=== PATIENT | female | born 1985 | race Caucasian/White ===

== ENCOUNTER 2018-11-21 23:42 | Emergency (ER) | payer OTHER ==
--- NOTE | 2018-11-22 00:05 | ER ---
Nurse's Notes [facility] Name: Zeny Bowen Age: 33 yrs Sex: Female : 1985 Arrival Date: 11/21/2018 Time: 23:43 Bed DIS1 Private MD: Diagnosis: Cellulitis of right lower limb Presentation: 11/21 23:48 Presenting complaint: Patient states: I started having right knee pain yesterday and la1 today I started having redness and increased pain. Transition of care: patient was not received from another setting of care. Onset of symptoms was November 21, 2018. Risk Assessment: Do you want to hurt yourself or someone else? Patient reports no desire to harm self or others. Initial Sepsis Screen: Does the patient meet any 2 criteria? No. Patient's initial sepsis screen is negative. Does the patient have a suspected source of infection? No. Patient's initial sepsis screen is negative. Care prior to arrival: None. 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 - Social history:: Smoking status: Patient/guardian denies using tobacco. - Ebola Screening: : No symptoms or risks identified at this time. Screenin/29 00:43 Abuse screen: Denies threats or abuse. Denies injuries from another. Nutritional mg2 screening: No deficits noted. Tuberculosis screening: No symptoms or risk factors identified. Fall Risk None identified. Assessment: 00:41 General: Appears in no apparent distress. comfortable, Behavior is calm, cooperative. mg2 Pain: Complains of pain in right leg and right knee Pain does not radiate. Pain currently is 1 out of 10 on a pain scale. Quality of pain is described as aching, Pain began gradually, 2-3 days ago. Is intermittent. Neuro: Level of Consciousness is awake, alert, obeys commands, Oriented to person, place, time, situation. Cardiovascular: Capillary refill < 3 seconds Patient's skin is warm and dry. Respiratory: Airway is patent Respiratory effort is even, unlabored, Respiratory pattern is regular, symmetrical. GI: No signs and/or symptoms were reported involving the gastrointestinal system. : No signs and/or symptoms were reported regarding the genitourinary system. EENT: No signs and/or symptoms were reported regarding the EENT system. Derm: Skin is intact, is healthy with good turgor, Skin is pink, warm \T\ dry. normal, redness and mild swelling/cellulitis in the right knee. Musculoskeletal: Circulation, motion, and sensation intact. Capillary refill < 3 seconds, Swelling present in right knee. Vital Signs: 11/21 23:49 BP 119 / 85; Pulse 85; Resp 18; Temp 98.7; Pulse Ox 98% on R/A; Weight 68.04 kg; Height la1 5 ft. 6 in. (167.64 cm); Pain 4/10; 11/22 00:43 BP 120 / 78; Pulse 80; Resp 18; Pulse Ox 100% on R/A; Pain 1/10; mg2 11/21 23:49 Body Mass Index 24.21 (68.04 kg, 167.64 cm) la1 ED Course: 11/21 23:43 Patient arrived in ED. am2 23:48 Triage completed. la1 23:49 Arm band placed on right wrist. la1 23:50 Teofilo Ghosh NP is PHCP. pm1 23:50 Mitesh Juarez MD is Attending Physician. pm1 11/22 00:28 Urban Wall, RN is Primary Nurse. mg2 00:43 No provider procedures requiring assistance completed. Patient did not have IV access mg2 during this emergency room visit. 00:44 Patient has correct armband on for positive identification. 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 Exp: mg2 09/09/2020. Lot #: [id number]. } Route: IM; Site: right deltoid; 00:29 Follow up: Response: No adverse reaction; Medication administered at discharge. mg2 00:29 Drug: Bactrim (160 mg-800 mg (DS) 1 tablet Route: PO; mg2 00:29 Follow up: Response: No adverse reaction; Medication administered at discharge. mg2 Outcome: 00:04 Discharge ordered by . pm1 00:43 Discharged to home ambulatory, with family. mg2 00:43 Condition: stable 00:43 Discharge instructions given to patient, family, Instructed on discharge instructions, follow up and referral plans. medication usage, Demonstrated understanding of instructions, follow-up care, medications, Prescriptions given X 2. 00:44 Patient left the ED. mg2 Signatures: Abilio Bajwa RN RN la1 Teofilo Ghosh NP PRESCHOOL ADVISER pm1 Hui Springer am2 Urban Wall RN RN mg2
--- NOTE | 2018-11-22 00:06 | EDPHYS ---
Physician Documentation [facility] Name: Zeny Bowen Age: 33 yrs Sex: Female : 1985 Arrival Date: 11/21/2018 Time: 23:43 Bed DIS1 Private MD: ED Physician Mitesh Juarez HPI: 11/22 00:00 This 33 yrs old Female presents to ER via Ambulatory with complaints of Knee pm1 Pain - redness and swelling. 00:00 the patient presents with a swollen area of the right knee. Description: raised. Onset: pm1 The symptoms/episode began/occurred today. Possible cause(s): insect sting. Associated signs and symptoms: Pertinent negatives: discharge, drainage, fever. Modifying factors: the symptoms are alleviated by nothing, the symptoms are aggravated by touching. Severity of symptoms: in the emergency department the symptoms are actually worse. The patient has experienced a previous episode, many years ago, MRSA. The patient has not recently seen a physician. Patient was shaving and noticed a painful area to right knee that started swelling a few hours later. 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 - Social history:: Smoking status: Patient/guardian denies using tobacco. - Ebola Screening: : No symptoms or risks identified at this time. ROS: 11/22 00:00 Constitutional: Negative for fever, chills, and weight loss, Eyes: Negative for injury, pm1 pain, redness, and discharge, ENT: Negative for injury, pain, and discharge, Neck: Negative for injury, pain, and swelling, Cardiovascular: Negative for chest pain, palpitations, and edema, Respiratory: Negative for shortness of breath, cough, wheezing, and pleuritic chest pain, Abdomen/GI: Negative for abdominal pain, nausea, vomiting, diarrhea, and constipation, Back: Negative for injury and pain, : Negative for injury, bleeding, discharge, and swelling, MS/Extremity: Negative for injury and deformity. Neuro: Negative for headache, weakness, numbness, tingling, and seizure. Skin: Positive for of the right knee, insect bite. Exam: 00:00 Constitutional: This is a well developed, well nourished patient who is awake, alert, pm1 and in no acute distress. Head/Face: Normocephalic, atraumatic. Neck: Trachea midline, no thyromegaly or masses palpated, and no cervical lymphadenopathy. Supple, full range of motion without nuchal rigidity, or vertebral point tenderness. No Meningismus. Chest/axilla: Normal chest wall appearance and motion. Nontender with no deformity. No lesions are appreciated. Cardiovascular: Regular rate and rhythm with a normal S1 and S2. No gallops, murmurs, or rubs. Normal PMI, no JVD. No pulse deficits. Respiratory: Lungs have equal breath sounds bilaterally, clear to auscultation and percussion. No rales, rhonchi or wheezes noted. No increased work of breathing, no retractions or nasal flaring. Abdomen/GI: Soft, non-tender, with normal bowel sounds. No distension or tympany. No guarding or rebound. No evidence of tenderness throughout. Back: No spinal tenderness. No costovertebral tenderness. Full range of motion. 00:00 MS/ Extremity: Pulses equal, no cyanosis. Neurovascular intact. Full, normal range of motion. 00:00 Skin: Appearance: normal except for affected area, abscess, not appreciated, cellulitis, that is mild, on the right knee - lower portion of patella. 00:00 Neuro: Orientation: is normal, Motor: is normal, moves all fours. Vital Signs: 11/21 23:49 BP 119 / 85; Pulse 85; Resp 18; Temp 98.7; Pulse Ox 98% on R/A; Weight 68.04 kg; Height la1 5 ft. 6 in. (167.64 cm); Pain 4/10; 11/22 00:43 BP 120 / 78; Pulse 80; Resp 18; Pulse Ox 100% on R/A; Pain 1/10; mg2 11/21 23:49 Body Mass Index 24.21 (68.04 kg, 167.64 cm) la1 MDM: 11/21 23:51 Patient medically screened. [facility] 11/22 00:04 Data reviewed: vital signs. Data interpreted: Pulse oximetry: on room air is 98 %. pm1 Interpretation: normal. Counseling: I had a detailed discussion with the patient and/or guardian regarding: the historical points, exam findings, and any diagnostic results supporting the discharge/admit diagnosis, the need for outpatient follow up, to return to the emergency department if symptoms worsen or persist or if there are any questions or concerns that arise at home. 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 Exp: mg2 09/09/2020. Lot #: [id number]. } Route: IM; Site: right deltoid; 00:29 Follow up: Response: No adverse reaction; Medication administered at discharge. mg2 00:29 Drug: Bactrim (160 mg-800 mg (DS) 1 tablet Route: PO; mg2 00:29 Follow up: Response: No adverse reaction; Medication administered at discharge. mg2 Disposition: 11/22/18 00:04 Discharged to Home. Impression: Cellulitis of right lower limb. - Condition is Stable. - Discharge Instructions: Insect Bite, Cellulitis, Adult. - Prescriptions for Bactrim DS 800- 160 mg Oral Tablet - take 1 tablet by ORAL route every 12 hours for 10 days; 20 tablet. Bactroban 2 % Topical Ointment - Apply to affected area 1 application by TOPICAL route every 12 hours; 30 gram. - Medication Reconciliation Form, Thank You Letter, Antibiotic Education, Prescription Opioid Use form. - Follow up: Emergency Department; When: As needed; Reason: Worsening of condition. Follow up: Private Physician; When: 2 - 3 days; Reason: Recheck today's complaints, Continuance of care, Re-evaluation by your physician. - Problem is new. - Symptoms have improved. Addendum: 11/23/2018 11:19 Co-signature as Attending Physician, Mitesh Juarez MD I agree with the assessment and c cabrera plan of care. Signatures: Mtiesh Juarez MD MD cha Attema, Lee RN RN la1 Teofilo Ghosh NP SHOE CLERK pm1 Ubran Wall RN RN mg2 Corrections: (The following items were deleted from the chart) 11/22 00:44 00:04 11/22/2018 00:04 Discharged to Home. Impression: Cellulitis of right lower limb. mg2 Condition is Stable. Forms are Medication Reconciliation Form, Thank You Letter, Antibiotic Education, Prescription Opioid Use. Follow up: Emergency Department; When: As needed; Reason: Worsening of condition. Follow up: Private Physician; When: 2 - 3 days; Reason: Recheck today's complaints, Continuance of care, Re-evaluation by your physician. Problem is new. Symptoms have improved. pm1
[2018-11-22] MEDS ORDERED: SMZ./TMP. 800/160 MG TABLET ONE (00:31)
[2018-11-22] MEDS ORDERED: TETANUS & DIPHTHERIA TOX,ADULT 0.5 ML VIAL ONE (00:31)
== END 2018-11-22 00:44 | disposition home or self-care (01) ==
LOC: ER 23:42
DX: L03.115 Cellulitis of right lower limb (principal); Z23 Encounter for immunization
CPT/HCPCS: 90714

== ENCOUNTER 2021-09-16 22:13 | Emergency (ER) | payer OTHER ==
--- NOTE | 2021-09-16 23:59 | EDPHYS ---
Physician Documentation [facility] Name: Zeny Bowen Age: 36 yrs Sex: Female : 1985 Arrival Date: 09/16/2021 Time: 22:19 Bed 8 Private MD: ED Physician Macho Napier HPI: 09/17 00:57 This 36 yrs old Female presents to ER via Ambulatory with complaints of Wrist Injury - kdr Right. 00:57 The patient or guardian reports decreased range of motion, pain. The complaints affect kdr the right wrist diffusely. Context: The problem was sustained at home, resulted from a direct blow, Patient hit a wall with her hand. Onset: The symptoms/episode began/occurred suddenly, just prior to arrival, at 19:00. Modifying factors: The symptoms are alleviated by nothing, the symptoms are aggravated by movement. Associated signs and symptoms: Pertinent positives: None. The patient has not experienced similar symptoms in the past. The patient has not recently seen a physician. 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 - Social history:: Smoking status: Patient denies any tobacco usage or history of. Patient/guardian denies using alcohol. ROS: 09/17 00:57 Constitutional: Negative for fever, chills, and weight loss, Eyes: Negative for injury, kdr pain, redness, and discharge. MS/extremity: Positive for injury or acute deformity, decreased range of motion, pain, tenderness, of the right wrist. Exam: 00:57 Constitutional: This is a well developed, well nourished patient who is awake, alert, kdr and in no acute distress. Head/Face: Normocephalic, atraumatic. 00:57 Musculoskeletal/extremity: Extremities: grossly normal except: noted in the right wrist: decreased ROM, pain, tenderness. Vital Signs: 09/16 22:32 BP 155 / 88; Pulse 102; Resp 18 S; Temp 99.0(TE); Pulse Ox 100% on R/A; Weight 77.11 kg lg3 (R); Height 5 ft. 6 in. (167.64 cm) (R); Pain 4/10; 09/17 00:17 BP 138 / 85; Pulse 87; Resp 17; Pulse Ox 100% on R/A; sm5 09/16 22:32 Body Mass Index 27.44 (77.11 kg, 167.64 cm) lg3 Procedures: 00:57 Splinting: using wrist splint. kdr MDM: 09/16 23:59 Patient medically screened. kdr 09/17 01:00 Data reviewed: vital signs, nurses notes, radiologic studies. Counseling: I had a kdr detailed discussion with the patient and/or guardian regarding: the historical points, exam findings, and any diagnostic results supporting the discharge/admit diagnosis, radiology results, the need for outpatient follow up. 09/16 22:50 Order name: Wrist Right 3 View XRAY kdr Administered Medications: No medications were administered Disposition Summary: 09/16/21 23:59 Discharge Ordered Location: Home kdr Problem: new kdr Symptoms: have improved kdr Condition: Stable kdr Diagnosis - Sprain of carpal joint of right wrist kdr - Contusion of right wrist kdr Followup: kdr - With: Private Physician - When: 2 - 3 days - Reason: If symptoms return, Further diagnostic work-up, Recheck today's complaints, Continuance of care, Re-evaluation by your physician Discharge Instructions: - Discharge Summary Sheet kdr - Wrist Pain, Adult, [id number] kdr Forms: - Medication Reconciliation Form kdr - Thank You Letter kdr Signatures: Dispatcher [employer] Macho De La Fuente MD MD kdr Dacia Lambert, RN RN lg3
--- NOTE | 2021-09-16 23:59 | ER ---
Nurse's Notes [facility] Name: Zeny Bowen Age: 36 yrs Sex: Female : 1985 Arrival Date: 09/16/2021 Time: 22:19 Bed 8 Private MD: Diagnosis: Sprain of carpal joint of right wrist;Contusion of right wrist Presentation: 09/16 22:32 Chief complaint: Patient states: hit right hand/wrist on wall around 1900. pain lg3 increasingly getting worse. no swelling or discoloration noted. Coronavirus screen: Client denies travel out of the [place] in the last 14 days. At this time, the client does not indicate any symptoms associated with coronavirus-19. Ebola Screen: No symptoms or risks identified at this time. Initial Sepsis Screen: Does the patient meet any 2 criteria? No. Patient's initial sepsis screen is negative. Does the patient have a suspected source of infection? No. Patient's initial sepsis screen is negative. Risk Assessment: Do you want to hurt yourself or someone else? Patient reports no desire to harm self or others. Onset of symptoms was September 16, 2021. 22:32 Method Of Arrival: Ambulatory lg3 22:32 Acuity: HADLEY 3 lg3 Triage Assessment: 22:35 General: Appears in no apparent distress. comfortable, Behavior is calm, cooperative. lg3 Pain: Complains of pain in right hand and right wrist Pain currently is 4 out of 10 on a pain scale. Quality of pain is described as sharp, shooting, Aggravated by increased activity, weight bearing. EENT: No deficits noted. Neuro: No deficits noted. Level of Consciousness is awake, alert, obeys commands, Oriented to person, place, time, situation. Cardiovascular: No deficits noted. Capillary refill < 3 seconds Clubbing of nail beds is absent Patient's skin is warm and dry. Respiratory: No deficits noted. Airway is patent Trachea midline Respiratory effort is even, unlabored, Respiratory pattern is regular, symmetrical. GI: No deficits noted. No signs and/or symptoms were reported involving the gastrointestinal system. : No deficits noted. No signs and/or symptoms were reported regarding the genitourinary system. Derm: No deficits noted. Skin is intact, is healthy with good turgor, Skin is dry. Musculoskeletal: Range of motion: limited in right wrist. Injury Description: hit to wall. 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 - Social history:: Smoking status: Patient denies any tobacco usage or history of. Patient/guardian denies using alcohol. Screenin:40 Abuse screen: Denies threats or abuse. Denies injuries from another. Nutritional lg3 screening: No deficits noted. Tuberculosis screening: No symptoms or risk factors identified. Fall Risk None identified. Assessment: 09/17 00:17 Musculoskeletal: Reports pain in right arm and right hand and right wrist. sm5 Vital Signs: 09/16 22:32 BP 155 / 88; Pulse 102; Resp 18 S; Temp 99.0(TE); Pulse Ox 100% on R/A; Weight 77.11 kg lg3 (R); Height 5 ft. 6 in. (167.64 cm) (R); Pain 4/10; 09/17 00:17 BP 138 / 85; Pulse 87; Resp 17; Pulse Ox 100% on R/A; sm5 09/16 22:32 Body Mass Index 27.44 (77.11 kg, 167.64 cm) lg3 ED Course: 09/16 22:19 Patient arrived in ED. wm 22:35 Triage completed. lg3 22:35 Arm band placed on left wrist. lg3 22:49 Macho Napier MD is Attending Physician. kdr 23:32 Wrist Right 3 View XRAY In Process Unspecified. EDMS 09/17 00:17 No provider procedures requiring assistance completed. Patient did not have IV access sm5 during this emergency room visit. wrist splint applied. 00:18 Patient has correct armband on for positive identification. Bed in low position. Call sm5 light in reach. Side rails up X2. Administered Medications: No medications were administered Outcome: 09/16 23:59 Discharge ordered by . kdr 09/17 00:18 Discharged to home ambulatory, with significant other. sm5 Condition: good Discharge instructions given to patient, significant other, Instructed on discharge instructions, follow up and referral plans. Demonstrated understanding of instructions, follow-up care. 00:18 Patient left the ED. sm5 Signatures: Dispatcher [employer] EDMS Macho Napier MD MD kdr Gibson, Lacie, CARA RN frank3 Ana Crum Sarah RN RN sm5
[2021-09-17 01:47] VITALS: TEMP 99; O2SAT 100
[2021-09-17 01:49] VITALS: BP 138/85
--- NOTE | 2021-09-17 08:37 | RAD REPORT ---
EXAM DESCRIPTION: RAD - Wrist Right 3 View - 09/16/2021 11:32 pm CLINICAL HISTORY: PAIN Pain COMPARISON: No comparisons FINDINGS: No fracture or dislocation seen. No foreign body or other soft tissue abnormality. IMPRESSION: Negative examination.
== END 2021-09-17 00:18 | disposition home or self-care (01) ==
LOC: ER 22:13
DX: S63.511A Sprain of carpal joint of right wrist, initial encounter (principal); W22.8XXA Striking against or struck by other objects, initial encounter
CPT/HCPCS: 99283

== ENCOUNTER 2024-07-01 14:41 | Emergency (ER) | payer OTHER, SELFPAY ==
--- NOTE | 2024-07-01 15:03 | EDPHYS ---
Physician Documentation [facility] Name: Zeny Small Age: 38 yrs Sex: Female : 1985 Arrival Date: 07/01/2024 Time: 14:41 Bed 12 Private MD: ED Physician Desmond Merritt HPI: 07/01 15:03 This 38 yrs old Female presents to ER via Ambulatory with complaints of Foreign body In sb4 Vagina. 15:03 patient states that she was intoxicated last night and had vaginal sexual intercourse sb4 with her boyfriend. she states that she had a tampon in and isn't sure if she took it out or not. she is concerned that it is now stuck in her vagina. no FB sensation at this time. no pain. Historical: - Allergies: 15:09 No Known Allergies; ss - PMHx: 14:51 MRSA; ss - PSHx: 14:51 section; hernia repair; tubal ligation; ss - Infectious Disease History:: Denies. - Social history:: Smoking status: Patient denies any tobacco usage or history of. ROS: 15:03 Positive for per HPI, sb4 15:03 Constitutional: Negative for fever, chills, and weight loss, Exam: 15:03 Constitutional: This is a well developed, well nourished patient who is awake, alert, sb4 and in no acute distress. Head/Face: Normocephalic, atraumatic. Eyes: Extra-ocular motions intact. Periorbital areas with no swelling, redness, or edema. ENT: Mucous membranes moist. Skin: Warm, dry with normal turgor. Normal color with no rashes, no lesions, and no evidence of cellulitis. 15:03 : Pelvic Exam: External exam: is normal, Speculum exam: no bleeding is noted, no cervicitis, no foreign body observed, MDM: 14:44 Medical Screening Exam initiated sb4 15:03 Data reviewed: vital signs, nurses notes, and as a result, I will discharge patient. sb4 Counseling: I had a detailed discussion with the patient and/or guardian regarding the historical points, exam findings, and any diagnostic results supporting the discharge/admit diagnosis, to return to the emergency department if symptoms worsen or persist or if there are any questions or concerns that arise at home. Administered Medications: No medications were administered Disposition Summary: 07/01/24 15:02 Discharge Ordered Notes: Location: Home sb4 Problem: new sb4 Symptoms: are unchanged sb4 Condition: Stable sb4 Diagnosis - Encounter for gynecological examination (general) (routine) without abnormal sb4 findings Followup: sb4 - With: Private Physician - When: As needed - Reason: Recheck today's complaints, Re-evaluation by your physician Discharge Instructions: - Discharge Summary Sheet sb4 - Pelvic Exam sb4 - Vaginal Foreign Body, [id number] sb4 Forms: - Patient Portal Instructions sb4 - Leadership Thank You Letter sb4 Signatures: Ca العلي RN RN Mirela Pelayo PA-C PA-C sb4
--- NOTE | 2024-07-01 15:03 | ER ---
Nurse's Notes [facility] Name: Zeny Small Age: 38 yrs Sex: Female : 1985 Arrival Date: 07/01/2024 Time: 14:41 Bed 12 Private MD: Diagnosis: Encounter for gynecological examination (general) (routine) without abnormal findings Presentation: 07/01 14:48 Chief complaint: Patient states: Pt believes she may have a tampon stuck in her vagina ss since last night. Coronavirus screen: Client denies travel out of the [place] in the last 14 days. Ebola Screen: Patient denies exposure to infectious person. Patient denies travel to an Ebola-affected area in the 21 days before illness onset. Initial Sepsis Screen: Does the patient meet any 2 criteria? No. Patient's initial sepsis screen is negative. Does the patient have a suspected source of infection? No. Patient's initial sepsis screen is negative. Risk Assessment: Do you want to hurt yourself or someone else? Patient reports no desire to harm self or others. Onset of symptoms was June 30, 2024. 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 - Social history:: Smoking status: Patient denies any tobacco usage or history of. Screenin:50 Abuse screen: Denies threats or abuse. Denies injuries from another. Nutritional ss screening: No deficits noted. Tuberculosis screening: Never had TB. Assessment: 14:50 General: Appears in no apparent distress. comfortable, Behavior is calm, cooperative. ss Neuro: Level of Consciousness is awake, alert, obeys commands, Oriented to person, place, time, situation. Respiratory: Airway is patent Respiratory effort is even, unlabored, Respiratory pattern is regular, symmetrical. : Reports possible tampon stuck in vagina since last night after intercourse. EENT: Nares are clear. Derm: Skin is intact, is healthy with good turgor, Skin is pink, warm \T\ dry. normal. ED Course: 14:43 Patient arrived in ED. ra3 14:44 Mirela Roblero PA-C is [facility]. sb4 14:44 Desmond Merritt MD is Attending Physician. sb4 14:48 Ca العلي, RN is Primary Nurse. ss 14:50 Patient has correct armband on for positive identification. ss 14:50 No provider procedures requiring assistance completed. Patient did not have IV access ss during this emergency room visit. 14:51 Triage completed. ss 14:51 Arm band placed on right wrist. ss Administered Medications: No medications were administered Medication: 14:50 VIS not applicable for this client. ss Outcome: 15:02 Discharge ordered by . sb4 15:09 Discharged to home ambulatory, ss 15:09 Condition: good 15:09 Discharge instructions given to patient, Instructed on discharge instructions, follow up and referral plans. Demonstrated understanding of instructions, follow-up care, 15:09 Patient left the ED. ss Signatures: Ca العلي RN RN Mirela Roblero PA-C PA-C sb4 Whit Johnson ra3
--- OUTSIDE RECORDS SUMMARY | 2024-07-04 08:17 | XMS REPORT | Continuity of Care Document ---
Author Name Unknown Address [address] [facility] [place] [place] [address] [facility] Address [address] [facility] [address] [place] [address] Care Team Providers Care Car Detailer Name Role Phone Mariel Almazan M.D. Primary Care Physician [phone] Medications Ordered Medication Name Filled Medication Name Start Date Stop Date Current Medication? Ordering Clinician Indication Dosage Frequency Signature (SIG) Comments Components Source clotrimazol e 1 % topical cream 12-02 00:00: 00 Yes 1% Stan Cruz medroxyprog esterone 10 mg tablet 12-02 00:00: 00 Yes 2mg Stan Cruz TAKE 1 TABLET BY MOUTH EVERY DAY 10-29 00:00: 00 Yes Stan Cruz TAKE 2 TABLETS THREE TIMES DAILY FOR 10 DAYS 03-26 00:00: 00 12-03 00:00 :00 No 10 Stan Cruz TAKE 1 TABLET 3 TIMES DAILY UNTIL GONE. 03-04 00:00: 00 12-03 00:00 :00 No 10 Stan Cruz Vital Signs Vital Name Observation Time Observation Value Comments S johanna BP Systolic 2023-12-31 13:33:00 128 mm[Hg] Jason Cruz BP Diastolic 2023-12-31 13:33:00 91 mm[Hg] [place] rCuz Weight Measured 2023-12-31 13:33:00 207.00 pounds Stan Cruz Height Measured 2023-12-31 13:33:00 65.00 inches Stan Cruz Body Temperature 2023-12-31 13:33:00 Stan Cruz Heart Rate 2023-12-31 13:33:00 79.00 /min Monet en F Anthony Respiratory Rate 2023-12-31 13:33:00 Stan F Anthony BP Systolic 2023-12-03 10:51:00 133 mm[Hg] Step hen F Anthony BP Diastolic 2023-12-03 10:51:00 95 mm[Hg] [place]athon phen F Anthony Weight Measured 2023-12-03 10:51:00 202.30 pounds Stan F Anthony Height Measured 2023-12-03 10:51:00 65.00 inches Stan F Anthony Body Temperature 2023-12-03 10:51:00 97.90 degrees Stan F Anthony Heart Rate 2023-12-03 10:51:00 74.00 /min Monet en F Anthony Respiratory Rate 2023-12-03 10:51:00 Stan F Anthony BP Systolic 2023-10-30 13:57:00 146 mm[Hg] Step hen F Anthony BP Diastolic 2023-10-30 13:57:00 103 mm[Hg] Johnathon phen F Anthony Weight Measured 2023-10-30 13:57:00 202.80 pounds Stan F Anthony Height Measured 2023-10-30 13:57:00 65.00 inches Stan F Anthony Body Temperature 2023-10-30 13:57:00 Stan F Anthony Heart Rate 2023-10-30 13:57:00 89.00 /min Monet en F Anthony Respiratory Rate 2023-10-30 13:57:00 Stan F Anthony BP Systolic 2023-05-06 15:55:00 125 mm[Hg] Step hen F Anthony BP Diastolic 2023-05-06 15:55:00 81 mm[Hg] Johnathon phen F Anthony Weight Measured 2023-05-06 15:55:00 196.80 pounds Stan F Anthony Height Measured 2023-05-06 15:55:00 65.00 inches Stan F Anthony Body Temperature 2023-05-06 15:55:00 98.20 degrees Stan F Anthony Heart Rate 2023-05-06 15:55:00 67.00 /min Monet en F Anthony Respiratory Rate 2023-05-06 15:55:00 19.00 /min Stan F Anthony BP Systolic 2023-04-07 15:11:00 118 mm[Hg] Step hen F Anthony BP Diastolic 2023-04-07 15:11:00 75 mm[Hg] Johnathon phen F Anthony Weight Measured 2023-04-07 15:11:00 200.00 pounds Stan F Anthony Height Measured 2023-04-07 15:11:00 65.00 inches Stan F Anthony Body Temperature 2023-04-07 15:11:00 98.10 degrees Stan F Anthony Heart Rate 2023-04-07 15:11:00 73.00 /min Monet en F Anthony Respiratory Rate 2023-04-07 15:11:00 18.00 /min Stan F Anthony Height Measured 2023-03-26 09:06:00 65.00 inches Stan F Anthony Body Temperature 2023-03-26 09:06:00 98.20 degrees Stan F Anthony Heart Rate 2023-03-26 09:06:00 70.00 /min Monet en F Anthony Respiratory Rate 2023-03-26 09:06:00 19.00 /min Stan F Anthony BP Systolic 2023-03-26 09:06:00 129 mm[Hg] Step hen F Anthony BP Diastolic 2023-03-26 09:06:00 90 mm[Hg] Johnathon phen F Anthony Weight Measured 2023-03-26 09:06:00 202.00 pounds Stan F Anthony BP Systolic 2023-03-04 08:29:00 115 mm[Hg] Step hen F Anthony BP Diastolic 2023-03-04 08:29:00 80 mm[Hg] John[place] phen F Anthony Weight Measured 2023-03-04 08:29:00 203.60 pounds Stan F Anthony Height Measured 2023-03-04 08:29:00 65.00 inches Stan F Anthony Body Temperature 2023-03-04 08:29:00 98.10 degrees Stan F Anthony Heart Rate 2023-03-04 08:29:00 64.00 /min Monet en F Anthony Respiratory Rate 2023-03-04 08:29:00 19.00 /min Stan Lucy Cruz Procedures Procedure Date / Time Performed Performing Clinic[facility] n Source [id number] Ultrasound, Abdominal, Real Time With Image Documentation; Complete 2023-04-02 00:00:00 Stan Cruz Encounters Start Date/Time End Date/Time Encounter Type Admission Type Attending Clinicians Care Facility Care Department Encounter ID Source 2023-12-31 13:29:35 2023-12-31 13:29:35 Outpatient [facility] [place] [id number] Stan Cruz 2023-12-31 00:00:00 2023-12-31 00:00:00 Outpatient Visit [facility] [id number] Stan Cruz 2023-12-03 10:48:53 2023-12-03 10:48:53 [place] [id number] Stan Cruz 2023-12-03 00:00:00 2023-12-03 00:00:00 Outpatient Visit [facility] [id number] Stan Cruz 2023-10-30 13:52:30 2023-10-30 13:52:30 Outpatient [place] [id number] Stan Cruz 2023-05-06 15:48:06 2023-05-06 15:48:06 Outpatient [place] [id number] Stan Cruz 2023-04-07 14:57:38 2023-04-07 14:57:38 Outpatient [place] [id number] Stan Cruz 2023-04-02 10:06:15 2023-04-02 10:06:15 Outpatient [place] [id number] Stan Cruz 2023-03-24 15:39:00 2023-03-24 15:39:00 Outpatient [place] [id number] Stan Cruz 2023-03-04 08:23:59 2023-03-04 08:23:59 Outpatient [facility] [id number] Stan Cruz Results Test Description Test Time Test Comments Results Result Co mments Source Stan CruzPAJaida TEST, THINPREP, [id number] 19:05:42* Test Item Value Reference Range Interpretation Comme nts SOURCE: (test code = 8001) Cervical/Endoc ervical SLIDES: (test code = 8011) 2 LMP: (test code = 8021) 03/26/2023 SPECIMEN ADEQUACY: (test code = 09307) (NOTE) Satisfactory for evaluation. Endocervical cells/transformation zone component present. INTERPRETATION: (test code = 91112) NILM/NO EPITH. ABNORMALITY;SE E BELOW ---- NEGATIVE FOR INTRAEPITHELIAL LESION OR MALIGNANCY (NILM) - OTHER COMMENTS: (test code = 8081) (NOTE) Shift in floresita suggestive of bacterial vaginosis. Glacial acetic acid added due to blood/mucus in specimen. CATCHER FILTER TIP : (test code = 8101) HENRY BAKER(ASC P)[facility] TECHNOLOGIST: (test code = 8111) HENRY Landeros(ASC P) LOCATION: (test code = 51556) (NOTE) Specimens proces sed and interpreted at [facility], [address] [place] [address], , CLIA: [id number] CPT: (test code = 8140) (NOTE) 10545 UNLESS OTH ERWISE INDICATED, COMPUTER AIDED AND CATCHER FILTER TIP SCREENING PERFORMED. The Pap test is a screening test with an inherent, but low probability of error. Your patient should be reminded to consult you immediately if she experiences any suspicious signs or symptoms, regardless of her Pap test result. An alternate report format containing images or consolidated prior Pap history is available as applicable. PAP TEST, THINPREP, [id number] 00:00:00* Test Item Value Reference Range Interpretation Comme nts SOURCE: (test code = 8001) Cervical/Endocervical SLIDES: (test code = 8011) 2 LMP: (test code = 8021) 03/26/2023 SPECIMEN ADEQUACY: (test code = 95127) (NOTE) INTERPRETATION: (test code = 16047) NILM/NO EPITH. ABNORMALITY;SEE BELOW OTHER COMMENTS: (test code = 8081) (NOTE) CATCHER FILTER TIP: (test code = 8101) HENRY BAKER(ASCP)IAC QC TECHNOLOGIST: (test code = 8111) HENRY Landeros(ASCP) LOCATION: (test code = 01684) (NOTE) CPT: (test code = 8140) (NOTE) Stan Sorto TEST, THINPREP, [id number] 00:00:00* Test Item Value Reference Range Interpretation Comme nts SOURCE: (test code = 8001) Cervical/Endocervical SLIDES: (test code = 8011) 2 LMP: (test code = 8021) 03/26/2023 SPECIMEN ADEQUACY: (test code = 68357) (NOTE) INTERPRETATION: (test code = 82439) NILM/NO EPITH. ABNORMALITY;SEE BELOW OTHER COMMENTS: (test code = 8081) (NOTE) CATCHER FILTER TIP: (test code = 8101) HENRY BAKER(ASCP)IAC QC TECHNOLOGIST: (test code = 8111) HENRY Landeros(ASCP) LOCATION: (test code = 63673) (NOTE) CPT: (test code = 8140) (NOTE) Stan CruzTRICHOMONAS, NAAT, [id number] 16:41:37* Test Item Value Reference Range Interpretation Comme nts TRICHOMONAS, NAAT, URINE (test code = 76953) NEGATIVE NEGATIVE Testing is perfo rmed with [employer]0/8800 method usingreal-time polymerase chain reaction (PCR) method. A negative result does not exclude low level infection, specimensampling error, or collection error. UNLESS OTHERWISE INDICATED, ALL TESTING PERFORMED AT [facility] [address] [place] [address] PROJECTION PRINTER: GUMARO JAMES M.D. CLIA NUMBER [id number] [place]. [id number] CT/NG, NAAT, [id number] 13:50:17* Test Item Value Reference Range Interpretation Comme nts CHLAMYDIA, NAAT, URINE (test code = 76504) NEGATIVE NEGATIVE Testing is perfo rmed with Asuncion NOE 6800/8800 systems usingreal-time polymerase chain reaction (PCR) method. A negative result does not exclude low level infection, specimensampling error, or collection error. GONORRHEA, NAAT, URINE (test code = 93692) NEGATIVE NEGATIVE Testing is perfo rmed with [employer] NOE 6800/8800 systems usingreal-time polymerase chain reaction (PCR) method. A negative result does not exclude low level infection, specimensampling error, or collection error. HPV HIGH RISK WITH GENOTYPE, [id number] 13:19:22* Test Item Value Reference Range Interpretation Comme nts HPV HIGH RISK INTERP (test code = 38494) NEGATIVE NEGATIVE HPV 16 (test code = 59783) NEGATIVE HPV 18 (test code = 73547) NEGATIVE HPV, HR, OTHER GENOTYPES (test code = 87723) NEGATIVE Testing methodol ogy is real-time PCR utilizing hydrolysis probes with the Asuncion Noe 4800 system. The test individually detects genotypes 16 and 18, as well as the other 12 high risk types (31,33,35,39,45,51,52,56 ,58,59,66,68). The expected result is negative. A negative result does not rule out the presence of HPV not included in the genotype set, a low level of infection or specimen sampling error. UNLESS OTHERWISE INDICATED, ALL TESTING PERFORMED AT [facility] [address] [place] [address] PROJECTION PRINTER: GUMARO JAMES M.D. CLIA NUMBER [id number] [facility] [place]. [id number] 04:53:52* Test Item Value Reference Range Interpretation Comme nts RPR RESULT (test code = 3501) NON-REACTIVE NON-REACTIVE RPR TITER (test code = 3500) NOT INDIC. TITER NOT INDIC. HEPATITIS PANEL, [id number] 04:20:34* Test Item Value Reference Range Interpretation Comme nts HEPATITIS A IgM (test code = 35041) NON-REACTIVE NON-REACTIVE HEPATITIS B CORE IgM (test code = 4644) NON-REACTIVE NON-REACTIVE HEPATITIS B SURF AG (test code = 2739) NON-REACTIVE NON-REACTIVE HEPATITIS C ANTIBODY (test code = 4675) REACTIVE NON-REACTIVE A INTERPRETATION HEPATITIS A: (test code = 2552) (NOTE) Hepatitis A serology shows no evidence of acute hepatitis A. INTERPRETATION HEPATITIS B: (test code = 05831) (NOTE) Hepatitis B serology shows no evidence of acute hepatitis B andno indication of exposure to hepatitis B virus in the previous lorna eight months. INTERPRETATION HEPATITIS C: (test code = 59863) (NOTE) Hepatitis C serology is consistent with exposure to hepatitis Cvirus. The CDC recommends performing a supplemental confirmatory teston initial positive hepatitis C antibody tests. HCV PCR quantitativecan be used to confirm these results on a new sample (See MMWR, 2003;52 RR-3). HIV 1/2 4TH GEN, RFLX [id number] 04:20:34* Test Item Value Reference Range Interpretation Comme nts HIV 1/2 4TH GEN, RFLX CONF ( test code = 3514) NON-REACTIVE NON-REACTIVE HIV 1/2 4TH GEN, RFLX [id number] 00:00:00* Test Item Value Reference Range Interpretation Comme nts HIV 1/2 4TH GEN, RFLX CONF ( test code = 3514) NON-REACTIVE Stan [id number] 00:00:00* Test Item Value Reference Range Interpretation Comme nts RPR RESULT (test code = 3501) NON-REACTIVE RPR TITER (test code = 3500) NOT INDIC. TITER Stan CruzHPV HIGH RISK WITH GENOTYPE, [id number] 00:00:00* Test Item Value Reference Range Interpretation Comme nts HPV HIGH RISK INTERP (test c ode = 90516) NEGATIVE HPV 16 (test code = 18444) NEGATIVE HPV 18 (test code = 06581) NEGATIVE HPV, HR, OTHER GENOTYPES (te st code = 10885) NEGATIVE PDFE (test code = PDFReport) PDF Stan CruzACUTE HEPATITIS [id number] 00:00:00* Test Item Value Reference Range Interpretation Comme nts HEPATITIS A IgM (test code = 16475) NON-REACTIVE HEPATITIS B CORE IgM (test c ode = 4644) NON-REACTIVE HEPATITIS B SURF AG (test co de = 2739) NON-REACTIVE HEPATITIS C ANTIBODY (test c ode = 4675) REACTIVE INTERPRETATION HEPATITIS A: (test code = 2552) (NOTE) INTERPRETATION HEPATITIS B: (test code = 62105) (NOTE) INTERPRETATION HEPATITIS C: (test code = 20637) (NOTE) Stan Ayala AustinCT/NG, TMA, [id number] 00:00:00* Test Item Value Reference Range Interpretation Comme nts CHLAMYDIA, NAAT, URINE (test code = 34424) NEGATIVE GONORRHEA, NAAT, URINE (test code = 15846) NEGATIVE Stan CruzTRICHOMONAS, URINE, [id number] 00:00:00* Test Item Value Reference Range Interpretation Comme nts TRICHOMONAS, NAAT, URINE (te st code = 28398) NEGATIVE Stan CruzHIV 1/2 4TH GEN, RFLX [id number] 00:00:00* Test Item Value Reference Range Interpretation Comme nts HIV 1/2 4TH GEN, RFLX CONF ( test code = 3514) NON-REACTIVE Stan CruzHPV HIGH RISK WITH GENOTYPE, [id number] 00:00:00* Test Item Value Reference Range Interpretation Comme nts HPV HIGH RISK INTERP (test c ode = 35799) NEGATIVE HPV 16 (test code = 98360) NEGATIVE HPV 18 (test code = 01797) NEGATIVE HPV, HR, OTHER GENOTYPES (te st code = 13206) NEGATIVE PDFE (test code = PDFReport) PDF Stan [id number] 00:00:00* Test Item Value Reference Range Interpretation Comme nts RPR RESULT (test code = 3501) NON-REACTIVE RPR TITER (test code = 3500) NOT INDIC. TITER Stan CruzACUTE HEPATITIS [id number] 00:00:00* Test Item Value Reference Range Interpretation Comme nts HEPATITIS A IgM (test code = 28917) NON-REACTIVE HEPATITIS B CORE IgM (test c ode = 4644) NON-REACTIVE HEPATITIS B SURF AG (test co de = 2739) NON-REACTIVE HEPATITIS C ANTIBODY (test c ode = 4675) REACTIVE INTERPRETATION HEPATITIS A: (test code = 2552) (NOTE) INTERPRETATION HEPATITIS B: (test code = 40469) (NOTE) INTERPRETATION HEPATITIS C: (test code = 21332) (NOTE) Stan Ayala AustinCT/NG, TMA, [id number] 00:00:00* Test Item Value Reference Range Interpretation Comme nts CHLAMYDIA, NAAT, URINE (test code = 24008) NEGATIVE GONORRHEA, NAAT, URINE (test code = 49190) NEGATIVE Stan CruzTRICHOMONAS, URINE, [id number] 00:00:00* Test Item Value Reference Range Interpretation Comme nts TRICHOMONAS, NAAT, URINE (te st code = 43148) NEGATIVE Stan [id number] 19:36:38* Test Item Value Reference Range Interpretation Comme nts TESTOSTERONE (test code = 2830) 36 NG/DL See_Comment NOTE: TOTAL TESTOSTERONE ASSAY SENSITIVITY IS 12 NG/DL. TO DETERMINE NORMAL VS. SUBNORMAL TESTOSTERONE IN CHILDREN AND WOMEN, CONSIDER TESTING WITH ULTRASENSITIVE TESTOSTERONE. [Automated message] The system which generated this result transmitted reference range: <=55. The reference range was not used to interpret this result as normal/abnormal. FSH + LH [id number] 19:28:27* Test Item Value Reference Range Interpretation Comme nts FOLLICLE STIM HORMONE (test code = 2700) 5.4 IU/L SEE BELOW EXPEC AGUSTO VALUES FOR FSH FOR FEMALES >17 YEARS FOLLICULAR 3.5-12.5 IU/L MID-CYCLE PEAK 4.7-21.5 IU/L LUTEAL PHASE 1.7-7.7 IU/L POSTMENOPAUSAL 25.8-134.8 IU/L LUTEINIZING HORMONE (test code = 2776) 5.3 IU/L SEE BELOW EXPEC AGUSTO VALUES FOR LH FOR FEMALES >17 YEARS MALES FEMALES >=18 YEARS 1.8-8.6 IU/L FOLLICULAR 2.4-12.6 IU/L MID-CYCLE PEAK 14.0-95.6 IU/L LUTEAL PHASE 1.0-11.4 IU/L POSTMENOPAUSAL 7.7-58.5 IU/L [id number] 19:28:27* Test Item Value Reference Range Interpretation Comme nts PROLACTIN (test code = 2800) 15.5 NG/ML 5.0-37.0 NOTE: Methodolog y is [employer] One Electrochemiluminescence Immunoassay (ECLIA). Values obtained with different assays/manufacturers cannot be used interchangeably. Results should not be used as sole basis to establish the presence or absence of malignancy. [id number] 19:28:27* Test Item Value Reference Range Interpretation Comme nts ESTRADIOL (test code = 2505) 182.0 PG/ML SEE BELOW EXPECTED VALUES FOR ESTRADIOL FOR FEMALES >=18 YEARS FOLLICULAR . . . . . . . . . . . . . PG/ML 12.4-233.0 OVULATION. . . . . . . . . . . . . . PG/ML 41.0-398.0 LUTEAL PHASE . . . . . . . . . . . . PG/ML 22.3-341.0 POSTMENOPAUSAL SUPPLEMENTED/NON-SUPP . PG/ML <138.0/<20.0 NOTE: TO DETERMINE NORMAL VS. SUBNORMAL ESTRADIOL IN POSTMENOPAUSAL FEMALES, CONSIDER ULTRASENSITIVE ESTRADIOL ([facility] ORDER CODE 5678). METHODOLOGY IS ASUNCION NOE ELECTROCHEMILUMINESCENT IMMUNOASSAY WITH A LIMIT OF DETECTION OF 17 PG/ML. TSH, THIRD [id number] 19:28:27* Test Item Value Reference Range Interpretation Comme nts TSH, THIRD GENERATION (test code = 2821) 1.020 UIU/ML 0.400-4.100 [id number] 19:28:27* Test Item Value Reference Range Interpretation Comme nts PROGESTERONE (test code = 2790) <0.20 NG/ML SEE BELOW EXPECTED VALUES FOR PROGESTERONE MALE . . . . . . . . . . . . . . . . NG/ML <0.20 FEMALE FOLLICULAR PHASE . . . . . . . . . NG/ML <0.90 OVULATION . . . . . . . . . . . . NG/ML <12.00 LUTEAL PHASE . . . . . . . . . . . NG/ML 1.83-23.90 POSTMENOPAUSAL . . . . . . . . . . NG/ML <0.20 1ST TRIMESTER. . . . . . . . . . . NG/ML 11.00-44.30 2ND TRIMESTER. . . . . . . . . . . NG/ML 25.40-83.30 3RD TRIMESTER. . . . . . . . . . . NG/ML 58.70-214.00 CBC W/AUTO DIFF WITH [id number] 04:29:07* Test Item Value Reference Range Interpretation Comme nts WBC (test code = 1001) 5.2 K/UL 3.5-11.0 RBC (test code = 1002) 4.40 M/UL 3.80-5.40 HEMOGLOBIN (test code = 1003) 13.4 G/DL 11.5-15.5 HEMATOCRIT (test code = 1004) 38.9 % 34.0-45.0 MCV (test code = 1005) 88.4 fL 80.0-99.0 MCH (test code = 1006) 30.5 PG 25.0-33.0 MCHC (test code = 1007) 34.4 G/DL 31.0-36.0 RDW (test code = 1038) 12.4 % 11.5-15.0 NEUTROPHILS (test code = 1008) 52.2 % LYMPHOCYTES (test code = 1010) 35.7 % MONOCYTES (test code = 1011) 7.8 % EOSINOPHILS (test code = 1012) 2.9 % BASOPHILS (test code = 1013) 1.0 % IMMATURE GRANULOCYTES (test code = 1036) 0.4 % NUCLEATED RBCS (test code = 1065) 0.0 /100 WBC'S See_Comment [Automated message] The system which generated this result transmitted reference range: 0.0. The reference range was not used to interpret this result as normal/abnormal. PLATELET COUNT (test code = 1015) 351 K/UL 130-400 ABSOLUTE NEUTROPHILS (test code = 1066) 2.69 K/UL 1.50-7.50 ABSOLUTE LYMPHOCYTES (test code = 1067) 1.84 K/UL 1.00-4.00 ABSOLUTE MONOCYTES (test code = 1068) 0.40 K/UL 0.20-1.00 ABSOLUTE EOSINOPHILS (test code = 1040) 0.15 K/UL 0.00-0.50 ABSOLUTE BASOPHILS (test code = 1069) 0.05 K/UL 0.00-0.20 ABS IMMATURE GRANULOCYTES (test code = 1020) 0.02 K/UL 0.00-0.10 ABS NUCLEATED RBCS (test code = 52078) 0.00 K/UL 0.00-0.11 COMMENTS (test code = 1016) (NOTE) SEE ADDITIONAL COMMENTS BELOW: CBC TESTING PERFORMED AT 37 DEGREES TO MINIMIZE INTERFERENCE FROM COLD AGGLUTININS. UNLESS OTHERWISE INDICATED, ALL TESTING PERFORMED AT [facility] [address] [place] [address] PROJECTION PRINTER: GUMARO JAMES M.D. CLIA NUMBER [id number] [place]. [id number] 00:00:00* Test Item Value Reference Range Interpretation Comme nts TESTOSTERONE (test code = 2830) 36 NG/DL Stan CruzFSH + LH [id number] 00:00:00* Test Item Value Reference Range Interpretation Comme nts FOLLICLE STIM HORMONE (test code = 2700) 5.4 IU/L LUTEINIZING HORMONE (test co de = 2776) 5.3 IU/L Stan [id number] 00:00:00* Test Item Value Reference Range Interpretation Comme nts PROLACTIN (test code = 2800) 15.5 NG/ML Stan [id number] 00:00:00* Test Item Value Reference Range Interpretation Comme nts ESTRADIOL (test code = 2505) 182.0 PG/ML Stan CruzTSH, THIRD [id number] 00:00:00* Test Item Value Reference Range Interpretation Comme nts TSH, THIRD GENERATION (test code = 2821) 1.020 UIU/ML Stan [id number] 00:00:00* Test Item Value Reference Range Interpretation Comme nts PROGESTERONE (test code = 2790) <0.20 NG/ML Stan CruzCBC W/AUTO [id number] 00:00:00* Test Item Value Reference Range Interpretation Comme nts WBC (test code = 1001) 5.2 K/UL RBC (test code = 1002) 4.40 M/UL HEMOGLOBIN (test code = 1003) 13.4 G/DL HEMATOCRIT (test code = 1004) 38.9 % MCV (test code = 1005) 88.4 fL MCH (test code = 1006) 30.5 PG MCHC (test code = 1007) 34.4 G/DL RDW (test code = 1038) 12.4 % NEUTROPHILS (test code = 1008) 52.2 % LYMPHOCYTES (test code = 1010) 35.7 % MONOCYTES (test code = 1011) 7.8 % EOSINOPHILS (test code = 1012) 2.9 % BASOPHILS (test code = 1013) 1.0 % IMMATURE GRANULOCYTES (test code = 1036) 0.4 % NUCLEATED RBCS (test code = 1065) 0.0 /100WBC'S PLATELET COUNT (test code = 1015) 351 K/UL ABSOLUTE NEUTROPHILS (test c ode = 1066) 2.69 K/UL ABSOLUTE LYMPHOCYTES (test c ode = 1067) 1.84 K/UL ABSOLUTE MONOCYTES (test cod e = 1068) 0.40 K/UL ABSOLUTE EOSINOPHILS (test c ode = 1040) 0.15 K/UL ABSOLUTE BASOPHILS (test cod e = 1069) 0.05 K/UL ABS IMMATURE GRANULOCYTES (t est code = 1020) 0.02 K/UL ABS NUCLEATED RBCS (test cod e = 60313) 0.00 K/UL COMMENTS (test code = 1016) (NOTE) Stan [id number] 00:00:00* Test Item Value Reference Range Interpretation Comme nts TESTOSTERONE (test code = 2830) 36 NG/DL Stan CruzFSH + LH [id number] 00:00:00* Test Item Value Reference Range Interpretation Comme nts FOLLICLE STIM HORMONE (test code = 2700) 5.4 IU/L LUTEINIZING HORMONE (test co de = 2776) 5.3 IU/L Stan [id number] 00:00:00* Test Item Value Reference Range Interpretation Comme nts PROLACTIN (test code = 2800) 15.5 NG/ML Stan [id number] 00:00:00* Test Item Value Reference Range Interpretation Comme nts ESTRADIOL (test code = 2505) 182.0 PG/ML Stan CruzTSH, THIRD [id number] 00:00:00* Test Item Value Reference Range Interpretation Comme nts TSH, THIRD GENERATION (test code = 2821) 1.020 UIU/ML Stan [id number] 00:00:00* Test Item Value Reference Range Interpretation Comme nts PROGESTERONE (test code = 2790) <0.20 NG/ML Stan CruzCBC W/AUTO [id number] 00:00:00* Test Item Value Reference Range Interpretation Comme nts WBC (test code = 1001) 5.2 K/UL RBC (test code = 1002) 4.40 M/UL HEMOGLOBIN (test code = 1003) 13.4 G/DL HEMATOCRIT (test code = 1004) 38.9 % MCV (test code = 1005) 88.4 fL MCH (test code = 1006) 30.5 PG MCHC (test code = 1007) 34.4 G/DL RDW (test code = 1038) 12.4 % NEUTROPHILS (test code = 1008) 52.2 % LYMPHOCYTES (test code = 1010) 35.7 % MONOCYTES (test code = 1011) 7.8 % EOSINOPHILS (test code = 1012) 2.9 % BASOPHILS (test code = 1013) 1.0 % IMMATURE GRANULOCYTES (test code = 1036) 0.4 % NUCLEATED RBCS (test code = 1065) 0.0 /100WBC'S PLATELET COUNT (test code = 1015) 351 K/UL ABSOLUTE NEUTROPHILS (test c ode = 1066) 2.69 K/UL ABSOLUTE LYMPHOCYTES (test c ode = 1067) 1.84 K/UL ABSOLUTE MONOCYTES (test cod e = 1068) 0.40 K/UL ABSOLUTE EOSINOPHILS (test c ode = 1040) 0.15 K/UL ABSOLUTE BASOPHILS (test cod e = 1069) 0.05 K/UL ABS IMMATURE GRANULOCYTES (t est code = 1020) 0.02 K/UL ABS NUCLEATED RBCS (test cod e = 44364) 0.00 K/UL COMMENTS (test code = 1016) (NOTE) Stan Cruz
== END 2024-07-01 15:09 | disposition home or self-care (01) ==
LOC: ER 14:41
DX: Z71.1 Person with feared health complaint in whom no diagnosis is made (principal)
CPT/HCPCS: 99282